=== PATIENT | female | born 1975 | race Caucasian/White ===

== ENCOUNTER 2017-07-31 08:14 | Emergency (ER) | payer OTHER, BC ==
[~2017-07-31] VITALS: Ht 162.6 cm; Wt 70.0 kg
[~2017-07-31 08:14] MED LIST: ADDE20 PO; ALPR.5 PO
[2017-07-31 08:15] VITALS: BP 137/98; PULSE 109; RESP 14; TEMP 97.6; O2SAT 99
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
[2017-07-31] MEDS ORDERED: KETOROLAC TROMETHAMINE 60 MG/2 ML (IM) VIAL IM ONE (08:30)
[2017-07-31] MEDS ORDERED: ORPHENADRINE INJ 60 MG/2 ML AMP IM ONE (08:30)
[2017-07-31] MEDS ORDERED: ROBA500T PO (09:06)
[2017-07-31] MEDS ORDERED: SILV1CRE20 TOPICAL (09:06)
== END 2017-07-31 09:16 | disposition home or self-care (01) ==
LOC: NEPD 08:14
DX: S16.1XXA Strain of muscle, fascia and tendon at neck level, initial encounter (principal); S20.212A Contusion of left front wall of thorax, initial encounter; T23.261A Burn of second degree of back of right hand, initial encounter; R00.0 Tachycardia, unspecified; V43.52XA Car driver injured in collision with other type car in traffic accident, initial encounter; Z79.899 Other long term (current) drug therapy; Z88.8 Allergy status to other drugs, medicaments and biological substances
CPT/HCPCS: 96372; 99284; J1885; J2360